=== PATIENT | male | born 1950 ===

== ENCOUNTER → 2021-02-05 | Outpatient (REF) | payer BC | LOC: M LABDRAWC 15:51 | DX: C61 Malignant neoplasm of prostate (principal) ==

== ENCOUNTER → 2021-05-13 | Outpatient (REF) | payer MEDICARE, BC | LOC: M LABDRAWC 15:46 | PROVIDERS: ATTEND Urology | DX: C61 Malignant neoplasm of prostate (principal) ==

== ENCOUNTER → 2021-08-18 | Outpatient (REF) | payer MEDICARE, BC | LOC: M LABDRAWC 16:27 | PROVIDERS: ATTEND Urology | DX: C61 Malignant neoplasm of prostate (principal) ==

== ENCOUNTER → 2022-02-08 | Outpatient (REF) | payer MEDICARE, BC | LOC: M LABDRAWC 15:30 | PROVIDERS: ATTEND Urology | DX: C61 Malignant neoplasm of prostate (principal) ==